=== PATIENT | male | born 2005 | race Caucasian/White ===

== ENCOUNTER 2023-09-21 14:00 | Emergency (ER) | payer OTHER ==
[~2023-09-21] VITALS: Ht 177.8 cm; Wt 72.6 kg
[2023-09-21 14:03] VITALS: BP 114/55; PULSE 90; RESP 18; TEMP 98.3; O2SAT 98
[2023-09-21 15:39] LABS: BASOPHILS % (AUTO) 0.2 % (0.0-2.0); EOSINOPHILS # (AUTO) 0.2 K/uL (0-0.4); EOSINOPHILS % (AUTO) 1.8 % (0.0-4.0); HEMATOCRIT 43.5 % (36-52); HEMOGLOBIN 15.4 g/dL (12.0-18.0); LYMPHOCYTES # (AUTO) 0.7 K/uL (2.0-11.5); LYMPHOCYTES % (AUTO) 7.7 % (20.5-51.1); MEAN CORPUSCULAR HEMOGLOBIN 30 pg (27-31); MEAN CORPUSCULAR HGB CONC 35 g/dL (33-37); MEAN CORPUSCULAR VOLUME 84.5 fL (80-94); MONOCYTES # (AUTO) 0.7 K/uL (0.8-1.0); NEUTROPHILS % (AUTO) 83.3 % (42.2-75.2); PLATELET COUNT (AUTO) 183 K/uL (140-450); RED BLOOD CELL COUNT(AUTO) 5.15 MIL/uL (4.20-6.10); RED CELL DISTRIBUTION WIDTH 12.5 % (11.6-13.7); WHITE BLOOD COUNT (AUTO) 9.6 K/uL (4.5-11.0)
[2023-09-21 15:53] LABS: ANION GAP 13.8 (8-16); CARBON DIOXIDE 27.6 mmol/L (21-32); CREATININE 0.9 mg/dL (0.6-1.3); POTASSIUM 3.4 mmol/L (3.5-5.1)
[2023-09-21 15:55] LABS: INR 1.16 (0.8-1.2); PARTIAL THROMBOPLASTIN TIME 29.9 secs (22-35.6); PROTHROMBIN TIME 12.1 secs (10.8-13.4)
[2023-09-21 16:10] LABS: BILIRUBIN,DIRECT 0.2 mg/dL (0.0-0.3); TOTAL BILIRUBIN 0.7 mg/dL (0.0-1.0); TOTAL PROTEIN, SERUM 7.8 g/dL (6.4-8.2)
[2023-09-21 16:17] VITALS: TEMP 98.3
[2023-09-21] MEDS ORDERED: CIPR500T4 PO (17:12)
[2023-09-21] MEDS ORDERED: MIRABULK PO (17:12)
[2023-09-21] MEDS ORDERED: DOCU-299 PO (17:12)
[2023-09-21] MEDS ORDERED: BEN10 PO (17:14)
[2023-09-21] MEDS: POTASSIUM CHLORIDE 10 MEQ TABER PO ONE (17:17)
[2023-09-21 17:40] VITALS: BP 113/71; PULSE 74; O2SAT 97
== END 2023-09-21 17:40 | disposition home or self-care (01) ==
LOC: MED 14:00
DX: K59.00 Constipation, unspecified (principal); E86.0 Dehydration; K92.1 Melena; Z79.899 Other long term (current) drug therapy
CPT/HCPCS: 36415; 80048; 80076; 83690; 85025; 85610; 85730; 86886; 86900; 86901; 87070; 99284